=== PATIENT | male | born 1965 | race Caucasian/White ===

== ENCOUNTER → 2016-11-01 | Outpatient (CLI) | payer BC ==
--- NOTE | 2016-11-01 16:41 | DI ---
LEFT HAND, 11/01/2016 4:15 PM: Clinical History: Left hand pain. Previous Exam: None at this facility. 3 views are submitted. There is no acute soft tissue, osseous, or joint abnormality. Reading: Normal left hand exam.
== END ==
LOC: MOB RAD 16:17
PROVIDERS: ATTEND Physician Assistant Medical
DX: M79.642 Pain in left hand (principal); M25.532 Pain in left wrist
CPT/HCPCS: 73130

== ENCOUNTER → 2016-11-14 | Outpatient (CLI) | payer BC ==
--- NOTE | 2016-11-14 21:16 | DI ---
XR HAND MIN 3VW,11/14/2016 4:00 PM: Clinical History: Left hand pain Previous Exam: November 01, 2016 Findings: 3 views of the left hand are obtained, and demonstrate anatomic alignment without visible fracture. There is normal mineralization. The joint spaces are normal. The surrounding soft tissues are unremarkable. There are no bony erosions identified. There are a few small osteophytes. 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
== END ==
LOC: MOB RAD 16:26
PROVIDERS: ATTEND Physician Assistant Medical
DX: M25.542 Pain in joints of left hand (principal)
CPT/HCPCS: 73130